=== PATIENT | female | born 2000 | race Caucasian/White ===

== ENCOUNTER 2021-09-18 22:20 | Observation (INO) ==
[2021-09-18 22:54] LABS: Bacteria,Urine Few per hpf (None-Few); Bilirubin,Urine Negative (Negative); Blood,Urine Negative (Negative); Clarity,Urine Turbid (Clear); Color,Urine Light-Yellow (Yellow); Glucose,Urine (UA) Normal (Normal); Ketones,Urine Negative (Negative); Leukocyte Esterase,Urine Negative (Negative); Nitrite,Urine Negative (Negative); PH,Urine 6.5 pH Units (5.0-8.0); Protein,Urine Negative (Neg-Trace); RBC,Urine 0-3 per hpf (0-3); Specific Gravity,Urine 1.006 (1.010-1.025); Squamous Epithelial Cell,Urine Few per hpf (None-Few); Urobilinogen,Urine Normal (Normal); WBC,Urine 0-3 per hpf (0-3)
== END 2021-09-18 23:07 | disposition home or self-care (01) ==
LOC: 1NENULAB
PROVIDERS: ADMIT Advanced Practice Midwife; ATTEND Advanced Practice Midwife

== ENCOUNTER 2021-10-19 09:01 | Inpatient (IN) ==
[~2021-10-19 09:01] MED LIST: *HR* Labetalol 20 MG/4 ML SYRINGE IVP PRN; *HR* Nalbuphine 10 MG/ML AMPUL IV PRN; Azithromycin 500 MG in 0.9 % Sodium Chloride 250 ML IVPB PRN; Famotidine 20 MG/2 ML VIAL IVP PRN; Lidocaine 1% 20 ML MDV INFILT PRN; Metoclopramide 10 MG/2 ML VIAL IVP PRN; Naloxone 0.4 MG/ML INJ IVP PRN; Ondansetron 4 MG/2 ML VIAL IVP PRN; Penicillin G Potassium 5,000,000 UNIT in 0.9 % Sodium Chloride Mini Bag 100 ML IVPB ONE
[2021-10-19] MEDS ORDERED: Ringers Solution, Lactated 1,000 ML IVC SCH (09:15)
[2021-10-19] MEDS ORDERED: Oxytocin 20 units/ LR 1000 mL 20 UNIT/1,000 ML BAG IVC SCH ×2 (09:15→12:15)
[2021-10-19] MEDS ORDERED: Ringers Solution, Lactated 1,000 ML ONE (09:32)
[2021-10-19] MEDS ORDERED: Calcium Gluconate 1,000 MG/10 ML VIAL IVP PRN (09:34)
[2021-10-19] MEDS ORDERED: *HR* Labetalol 20 MG/4 ML SYRINGE IVP ONE ×2 (09:41)
[2021-10-19] MEDS: Magnesium Sulf 20 gm/SW 500mL 20 GM/500 ML IV.SOLN IVC SCH ×2 (10:02→19:58)
[2021-10-19 10:34] LABS: Basophils # 0.1 K/mcL (0.0-0.2); Basophils % 0.7 %; Eosinophils # 0.4 K/mcL (0.0-0.6); Eosinophils % 3.6 %; Hematocrit 39.5 % (35.3-44.9); Hemoglobin 12.8 g/dL (11.5-15.4); Immature Granulocytes % 0.4 % (0-4); Lymphocytes # 2.5 K/mcL (0.6-4.6); Lymphocytes % 24.9 %; Mean Corpuscular HGB Conc 32.4 g/dL (31.6-35.5); Mean Corpuscular Hemoglobin 27.9 pg (28.0-33.3); Mean Corpuscular Volume 86.1 fL (83.0-100.0); Mean Platelet Volume 12.5 fL (9.4-12.4); Monocytes # 0.6 K/mcL (0.0-1.3); Monocytes % 6.1 %; Neutrophils # 6.5 K/mcL (1.6-8.9); Platelet Count 258 K/mcL (140-400); Red Blood Count 4.59 M/mcL (3.82-4.97); Red Cell Distribution Width 12.4 % (11.5-14.5); Segmented Neutrophils % 64.3 %
[2021-10-19 10:44] LABS: Alanine Aminotransferase 115 Units/L (7-52); Amphetamine Screen,Urine Negative ng/mL (Cutoff=1000); Aspartate Amino Transferase 54 Units/L (13-39); BUN/Creatinine Ratio 10 (6-26); Barbiturate Screen,Urine Negative ng/mL (Cutoff=200); Benzodiazepines Screen,Urine Negative ng/mL (Cutoff=200); Blood Urea Nitrogen 9 mg/dL (6-20); Cannabinoid Screen,Urine Negative ng/mL (Cutoff = 50); Cocaine Screen,Urine Negative ng/mL (Cutoff= 300); Lactate Dehydrogenase 246 Units/L (140-271); Opiate Screen,Urine Negative ng/mL (Cutoff=300); Phencyclidine Screen,Urine Negative ng/mL (Cutoff=25); Uric Acid 7.2 mg/dL (2.3-7.6); eGFR For African Americans > 60 (> 60); eGFR For Non-African Americans > 60 (> 60)
[2021-10-19 10:51] LABS: Creatinine,Urine 78 mg/dL
[2021-10-19 11:15] LABS: Influenza A PCR Negative (Negative); Influenza B PCR Negative (Negative); Resp. Syncytial Virus PCR Negative (Negative); SARS-CoV-2 by PCR (In House) Negative (Negative)
[2021-10-19] MEDS ORDERED: EPHEDrine 50 MG/ML VIAL IVP PRN (11:19)
[2021-10-19] MEDS: Penicillin G Potassium 2,500,000 UNIT/105 ML MLS IVPB SCH ×2 (14:01→18:05)
[2021-10-19] MEDS ORDERED: *HR* FentaNYL (PF) 100 MCG/2 ML VIAL ONE (14:39)
[2021-10-19] MEDS ORDERED: Ropivacaine/PF 0.2% 20 ML VIAL ONE (14:39)
[2021-10-19] MEDS: Epidural Premix (fent/bupiv) 110 ML EP SCH (15:07)
[2021-10-19] MEDS ORDERED: Acetaminophen 325 MG TABLET PO ONE (18:29)
[2021-10-20] MEDS ORDERED: *HR* HYDROcodone/Acet 5/325 mg TABLET PO PRN (02:44)
[2021-10-20] MEDS ORDERED: Benzocaine/Menthol 56 GM AEROSOL SPRAY TP PRN (03:08)
[2021-10-20] MEDS ORDERED: *HR* OxyCODONE Immed Rel 5 MG TABLET PO PRN (03:08)
[2021-10-20] MEDS: Epidural Premix (fent/bupiv) 110 ML EP SCH (03:08)
[2021-10-20] MEDS ORDERED: Lanolin 7 G OINT...G. TP PRN (03:08)
[2021-10-20] MEDS ORDERED: Ondansetron ODT 4 MG TAB.RAPDIS SL PRN (03:08)
[2021-10-20] MEDS ORDERED: Oxytocin 20 units/ LR 1000 mL 20 UNIT/1,000 ML BAG IVC SCH (03:08)
[2021-10-20] MEDS ORDERED: Epidural Premix (fent/bupiv) 110 ML EP ONE (05:02)
[2021-10-20] MEDS: Magnesium Sulf 20 gm/SW 500mL 20 GM/500 ML IV.SOLN IVC SCH ×2 (06:15→15:44)
[2021-10-20] MEDS: Ibuprofen 600 MG TABLET PO SCH ×4 (06:16→22:44)
[2021-10-20] MEDS: Acetaminophen 325 MG TABLET PO SCH ×5 (06:17→19:34)
[2021-10-20 07:05] LABS: Basophils # 0.1 K/mcL (0.0-0.2); Basophils % 0.4 %; Eosinophils % 0.1 %; Hematocrit 31.7 % (35.3-44.9); Hemoglobin 10.2 g/dL (11.5-15.4); Immature Granulocytes % 0.4 % (0-4); Lymphocytes # 1.5 K/mcL (0.6-4.6); Lymphocytes % 8.4 %; Mean Corpuscular HGB Conc 32.2 g/dL (31.6-35.5); Mean Corpuscular Hemoglobin 27.6 pg (28.0-33.3); Mean Corpuscular Volume 85.7 fL (83.0-100.0); Mean Platelet Volume 12.2 fL (9.4-12.4); Monocytes # 0.6 K/mcL (0.0-1.3); Monocytes % 3.2 %; Neutrophils # 15.8 K/mcL (1.6-8.9); Platelet Count 246 K/mcL (140-400); Red Cell Distribution Width 12.5 % (11.5-14.5); Segmented Neutrophils % 87.5 %; White Blood Count 18.1 K/mcL (4.3-11.1)
[2021-10-20] MEDS: Prenatal Vit/FA 1 EACH TABLET PO SCH (08:40)
[2021-10-20] MEDS ORDERED: NON-FORMULARY MEDICATION 1 EACH EACH (Prenatal 19 Tablet 1 TAB) PO SCH (09:00)
[2021-10-20] MEDS ORDERED: miSOPROStoL 100 MCG TABLET RC ONE (12:28)
[2021-10-21 05:10] LABS: Basophils % 0.3 %; Eosinophils # 0.3 K/mcL (0.0-0.6); Eosinophils % 1.9 %; Hematocrit 30.5 % (35.3-44.9); Hemoglobin 9.9 g/dL (11.5-15.4); Immature Granulocytes % 0.5 % (0-4); Lymphocytes % 15.2 %; Mean Corpuscular HGB Conc 32.5 g/dL (31.6-35.5); Mean Corpuscular Hemoglobin 28.3 pg (28.0-33.3); Mean Corpuscular Volume 87.1 fL (83.0-100.0); Monocytes # 0.7 K/mcL (0.0-1.3); Monocytes % 5.2 %; Neutrophils # 10.2 K/mcL (1.6-8.9); Platelet Count 209 K/mcL (140-400); Red Cell Distribution Width 13.1 % (11.5-14.5); Segmented Neutrophils % 76.9 %; White Blood Count 13.2 K/mcL (4.3-11.1)
[2021-10-21 05:19] LABS: Alanine Aminotransferase 76 Units/L (7-52); Aspartate Amino Transferase 36 Units/L (13-39); BUN/Creatinine Ratio 10 (6-26); Blood Urea Nitrogen 8 mg/dL (6-20); Lactate Dehydrogenase 446 Units/L (140-271); eGFR For African Americans > 60 (> 60); eGFR For Non-African Americans > 60 (> 60)
[2021-10-21] MEDS: Ibuprofen 600 MG TABLET PO SCH ×3 (08:42→19:42)
[2021-10-21] MEDS: Prenatal Vit/FA 1 EACH TABLET PO SCH (08:42)
[2021-10-21] MEDS: Acetaminophen 325 MG TABLET PO SCH ×2 (08:43→19:42)
[2021-10-21] MEDS: NIFEdipine XL (24 HR) 60 MG TAB.ER.24 PO SCH (09:20)
[2021-10-22 04:32] VITALS: O2SAT 99
[2021-10-22 07:08] VITALS: BP 128/85; PULSE 67; TEMP 98.3
[2021-10-22] MEDS: Prenatal Vit/FA 1 EACH TABLET PO SCH (10:13)
[2021-10-22] MEDS: Ibuprofen 600 MG TABLET PO SCH (10:13)
[2021-10-22] MEDS: NIFEdipine XL (24 HR) 60 MG TAB.ER.24 PO SCH (10:13)
== END 2021-10-22 12:35 | disposition home or self-care (01) | DRG 806 ==
LOC: 1NENULAB → 1NENUOBS 10-20 05:36
PROVIDERS: ADMIT Obstetrics & Gynecology; ATTEND Obstetrics & Gynecology